=== PATIENT | female | born 1960 | race Caucasian/White ===

== ENCOUNTER → 2019-09-28 | Outpatient (CLI) | payer OTHER ==
[~2019-09-28] MED LIST: APIX5TAB3 PO; CYCL5TAB PO; DILT60TA PO; FLEC100T PO; GABA600T7 PO; HYDR-2765 PO; SPIR25TA5 PO
[2019-09-28 09:38] VITALS: BP 128/72
== END | disposition home or self-care (01) ==
LOC: SURG 09:16
PROVIDERS: ATTEND Anesthesiology Pain Medicine
DX: M54.12 Radiculopathy, cervical region (principal); M54.16 Radiculopathy, lumbar region; G89.4 Chronic pain syndrome; I48.91 Unspecified atrial fibrillation; M19.90 Unspecified osteoarthritis, unspecified site; F11.90 Opioid use, unspecified, uncomplicated; Z79.01 Long term (current) use of anticoagulants; Z79.899 Other long term (current) drug therapy
CPT/HCPCS: 99214